=== PATIENT | female | born 1975 | race Caucasian/White ===

== ENCOUNTER 2018-06-23 12:01 | Emergency (ER) | payer OTHER ==
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
[2018-06-23 14:46] VITALS: BP 108/68
== END 2018-06-23 15:27 | disposition home or self-care (01) ==
LOC: ED 12:01
DX: S16.1XXA Strain of muscle, fascia and tendon at neck level, initial encounter (principal); V53.6XXA Passenger in pick-up truck or van injured in collision with car, pick-up truck or van in traffic accident, initial encounter; Y92.411 Interstate highway as the place of occurrence of the external cause
CPT/HCPCS: 72125; 99283

== ENCOUNTER 2019-06-10 16:58 | Emergency (ER) | payer OTHER ==
[2019-06-10] MEDS ORDERED: ASPIRIN CHEW 81 MG TABLET PO STA (17:10)
[2019-06-10] MEDS ORDERED: MAG HYDROX/AL HYDROX/SIMETH 30 ML UDC PO STA (17:11)
[2019-06-10] MEDS ORDERED: LIDOCAINE VISCOUS 2% 15 ML UDC MM STA (17:11)
--- NOTE | 2019-06-10 17:13 | ED Physician Documentation ---
PD HPI CHEST PAIN - Stated complaint Stated Complaint: CP - Chief complaint Chief Complaint: Cardiac - History obtained from History obtained from: Patient (She developed sharp pain under the left breast radiating to the left shoulder with a feeling of a cold left arm at 2:00 while working lightly at work. She denies shortness of breath. She is never had this before. No recent travel. No control use or calf pain. No history of D VT or PE. No personal history of heart disease. She does have some family history of heart disease in second-degree relatives at a young age.) Review of Systems Ten Systems: 10 systems reviewed and negative Constitutional: denies: Fever, Chills Throat: denies: Dental pain / toothache, Sore throat Cardiac: denies: Pedal edema, Calf pain Respiratory: denies: Hemoptysis, Wheezing PD PAST MEDICAL HISTORY - Past Surgical History Past Surgical History: No - Present Medications Home Medications: Ambulatory Orders Medication Instructions Recorded Confirmed Cyclobenzaprine [Flexeril] 10 mg PO TID PRN #20 tablet 06/23/18 Hydrocodone/Acetaminophen 1 - 2 each PO Q6H PRN #14 tablet 06/23/18 [Hydrocodon-Acetaminophen 5-325] - Allergies Allergies/Adverse Reactions: Allergies Allergy/AdvReac Type Severity Reaction Status Date / Time No Known Drug Allergies Allergy Verified 06/10/19 17:03 - Social History Does the pt smoke?: No Smoking Status: Never smoker Does the pt drink ETOH?: No Does the pt have substance abuse?: No - Immunizations Immunizations are current?: Yes - POLST Patient has POLST: No PD ED PE NORMAL - Vitals Vital signs reviewed: Yes - General General: Alert and oriented X 3, No acute distress - HEENT HEENT: PERRL, EOMI - Neck Neck: Supple, no meningeal sign, No bony TTP - Cardiac Cardiac: RRR, No murmur - Respiratory Respiratory: No respiratory distress, Clear bilaterally - Abdomen Abdomen: Soft, Non tender - Back Back: No CVA TTP, No spinal TTP - Derm Derm: Normal color, Warm and dry - Extremities Extremities: No edema, No calf tenderness / cord - Neuro Neuro: Alert and oriented X 3, Normal speech Results - Vitals Vitals: Vital Signs - 24 hr 06/10/19 06/10/19 06/10/19 17:03 17:20 18:06 Temperature 36.6 C 36.6 C Heart Rate 60 66 53 L Respiratory 14 18 17 Rate Blood Pressure 139/83 H 139/83 H 117/84 H O2 Saturation 100 100 99 Oxygen O2 Source Room air - EKG (time done) 1702 Rate: Rate (enter#) (59) Rhythm: NSR (with pacs) [place]: Normal Intervals: Normal SC QRS: Normal Ischemia: Non specific changes (flat T waves throughout). No: ST elevation c/w ischemia, ST depression Computer interpretation: Agree with computer - Labs Labs: Laboratory Tests 06/10/19 06/10/19 06/10/19 17:17 17:17 17:17 WBC 5.9 RBC 3.98 L Hgb 12.0 Hct 35.9 L MCV 90.2 MCH 30.2 MCHC 33.4 RDW 13.8 Plt Count 232 MPV 10.1 Neut # (Auto) 2.8 Lymph # (Auto) 2.4 [place] # (Auto) 0.6 Eos # (Auto) 0.1 Baso # (Auto) 0.0 Absolute Nucleated RBC 0.00 Nucleated RBC % 0.0 D-Dimer < 200.0 L Sodium 139 Potassium 3.6 Chloride 104 Carbon Dioxide 26 Anion Gap 9.0 BUN 13 Creatinine 0.6 Estimated GFR (MDRD) 108 Glucose 97 Calcium 9.0 Total Bilirubin 0.7 AST 35 ALT 43 Alkaline Phosphatase 54 Troponin I High Sens Total Protein 6.9 Albumin 4.2 Globulin 2.7 Albumin/Globulin Ratio 1.6 Lipase 33 06/10/19 17:17 WBC RBC Hgb Hct MCV MCH MCHC RDW Plt Count MPV Neut # (Auto) Lymph # (Auto) [place] # (Auto) Eos # (Auto) Baso # (Auto) Absolute Nucleated RBC Nucleated RBC % D-Dimer Sodium Potassium Chloride Carbon Dioxide Anion Gap BUN Creatinine Estimated GFR (MDRD) Glucose Calcium Total Bilirubin AST ALT Alkaline Phosphatase Troponin I High Sens < 2.3 L Total Protein Albumin Globulin Albumin/Globulin Ratio Lipase - Rads (name of study) 2v chest Radiology: EMP read contemporaneously (normal) PD MEDICAL DECISION MAKING - ED course ED course: Heart score 2 (age/ekg) 43-year-old woman with atypical chest pain, cardiac markers and EKG were negative for acute ischemia. D-dimer negative. Departure - Departure Disposition: Home, Self Care Clinical Impression: Atypical chest pain Condition: Good Record reviewed to determine appropriate education?: Yes Instructions: ED Chest Pain Atypical Unkn Cause Comments: Today we saw you for chest pain, your EKG did not suggest a heart attack and your cardiac markers are negative. We also checked for signs of blood clots which were negative and a chest x-ray which is completely normal. Please return for new or worsening symptoms, follow-up with your doctor, next available appointment. Discharge Date/Time: 06/10/19 18:06
[2019-06-10 17:25] LABS: BASOPHILS % (AUTO) 0.7 %; EOSINOPHILS # (AUTO) 0.1 10^3/uL (0.0-0.7); EOSINOPHILS % (AUTO) 1.7 %; LYMPHOCYTES # (AUTO) 2.4 10^3/uL (1.5-3.5); LYMPHOCYTES % (AUTO) 40.4 %; MEAN CORPUSCULAR HEMOGLOBIN 30.2 pg (27.0-31.0); MEAN CORPUSCULAR HGB CONC 33.4 g/dL (32.0-36.0); MEAN CORPUSCULAR VOLUME 90.2 fL (81.0-99.0); MEAN PLATELET VOLUME 10.1 fL (7.9-10.8); MONOCYTES # (AUTO) 0.6 10^3/uL (0.0-1.0); MONOCYTES % (AUTO) 10.2 %; NEUTROPHILS # (AUTO) 2.8 10^3/uL (1.5-6.6); NEUTROPHILS % (AUTO) 46.7 %; PLT - PLATELET COUNT 232 10^3/uL (130-450); RED BLOOD COUNT 3.98 10^6/uL (4.20-5.40); RED CELL DISTRIBUTION WIDTH 13.8 % (12.0-15.0); WHITE BLOOD COUNT 5.9 x10^3/uL (4.8-10.8)
[2019-06-10 17:43] LABS: ALBUMIN 4.2 g/dL (3.2-5.5); ALBUMIN/GLOBULIN RATIO 1.6 (1.0-2.2); BILIRUBIN,TOTAL 0.7 mg/dL (0.2-1.0); CREATININE 0.6 mg/dL (0.4-1.0); TOTAL PROTEIN 6.9 g/dL (6.7-8.2)
--- NOTE | 2019-06-10 17:52 | XRAY Report ---
Reason: chest pain Procedure Date: 06/10/2019 Accession Number: [id number] / [id number] Procedure: XR - Chest 2 View X-Ray CPT Code: 05897 Final Report FULL RESULT: EXAM: CHEST RADIOGRAPHY EXAM DATE: 06/10/2019 05:42 PM. CLINICAL HISTORY: Chest pain. COMPARISON: None. TECHNIQUE: 2 views. FINDINGS: Lungs/Pleura: No focal opacities evident. No pleural effusion. No pneumothorax. Normal volumes. Mediastinum: Heart and mediastinal contours are unremarkable. Other: None. IMPRESSION: No acute intrathoracic plain film abnormality. RADIA
[2019-06-10 18:07] VITALS: BP 117/84
== END 2019-06-10 18:06 | disposition home or self-care (01) ==
LOC: ED 16:58
DX: R07.89 Other chest pain (principal); I49.1 Atrial premature depolarization; Z82.49 Family history of ischemic heart disease and other diseases of the circulatory system
CPT/HCPCS: 36415; 71046; 80053; 83690; 84484; 85025; 85379; 93005; 99284; A9270

== ENCOUNTER 2020-09-02 09:54 | Outpatient (CLI) | payer OTHER | END 2020-09-02 09:55 | disposition critical access hospital (66) | LOC: EMS 09:54 | PROVIDERS: ATTEND Emergency Medicine | DX: R06.00 Dyspnea, unspecified (principal); R42 Dizziness and giddiness; R20.0 Anesthesia of skin | CPT/HCPCS: A0425; A0429 ==

== ENCOUNTER 2020-09-02 09:59 | Emergency (ER) | payer OTHER ==
--- NOTE | 2020-09-02 10:48 | XRAY Report ---
PROCEDURE: Chest 1 View X-Ray INDICATIONS: chest pain TECHNIQUE: One view of the chest was acquired. COMPARISON: 06/10/2019 FINDINGS: Surgical changes and devices: None. Lungs and pleura: No pleural effusions or pneumothorax. Lungs are clear. Mediastinum: Mediastinal contours appear normal. Heart size is normal. Bones and chest wall: No suspicious bony lesions. Overlying soft tissues appear unremarkable. IMPRESSION: No acute cardiopulmonary disease process. Reviewed by: Beti Carcamo MD, PhD on 09/02/2020 10:47 AM PDT Approved by: Beti Carcamo MD, PhD on 09/02/2020 10:47 AM PDT Station ID: [id number]
[2020-09-02 10:53] LABS: BILIRUBIN,URINE NEGATIVE (NEGATIVE); GLUCOSE, URINE (UA) NEGATIVE (NEGATIVE); KETONES,URINE (UA) TRACE mg/dL (NEGATIVE); LEUKOCYTE ESTERASE, URINE NEGATIVE (NEGATIVE); NITRITE,URINE NEGATIVE (NEGATIVE); OCCULT BLOOD,URINE NEGATIVE (NEGATIVE); PROTEIN,URINE NEGATIVE (NEGATIVE); UROBILINOGEN,URINE 0.2 (NORMAL) E.U./dL (NORMAL)
[2020-09-02 10:55] LABS: CLARITY,URINE CLEAR (CLEAR); HCG UR QUAL NEGATIVE
[2020-09-02 10:56] LABS: BASOPHILS % (AUTO) 0.5 %; EOSINOPHILS # (AUTO) 0.1 10^3/uL (0.0-0.7); EOSINOPHILS % (AUTO) 1.1 %; HCT - HEMATOCRIT 25.9 % (37.0-47.0); HGB - HEMOGLOBIN 8.5 g/dL (12.0-16.0); LYMPHOCYTES # (AUTO) 1.3 10^3/uL (1.5-3.5); LYMPHOCYTES % (AUTO) 22.6 %; MEAN CORPUSCULAR HEMOGLOBIN 30.4 pg (27.0-31.0); MEAN CORPUSCULAR HGB CONC 32.8 g/dL (32.0-36.0); MEAN CORPUSCULAR VOLUME 92.5 fL (81.0-99.0); MEAN PLATELET VOLUME 9.6 fL (7.9-10.8); MONOCYTES # (AUTO) 0.5 10^3/uL (0.0-1.0); NEUTROPHILS # (AUTO) 3.8 10^3/uL (1.5-6.6); NEUTROPHILS % (AUTO) 67.4 %; PLT - PLATELET COUNT 400 10^3/uL (130-450); RED CELL DISTRIBUTION WIDTH 14.3 % (12.0-15.0); WHITE BLOOD COUNT 5.6 x10^3/uL (4.8-10.8)
[2020-09-02 11:09] LABS: ALBUMIN/GLOBULIN RATIO 1.4 (1.0-2.2); BILIRUBIN,TOTAL 0.6 mg/dL (0.2-1.0); CALCIUM 8.9 mg/dL (8.5-10.3); CREATININE 0.6 mg/dL (0.4-1.0); POTASSIUM 3.4 mmol/L (3.5-5.0); TOTAL PROTEIN 6.8 g/dL (6.7-8.2)
--- NOTE | 2020-09-02 12:14 | ED Physician Documentation ---
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 No: Fever, Cough, Hemoptysis, Wheezing, Chest pain / discomfort, Palpitations, Diaphoresis, Bilateral edema, Unilateral edema, Anxiety Similar symptoms before: Diagnosis (anemia) Recently seen: Clinic - Additional information Additional information: 45-year-old female has AN anemia and she has had episodic dyspnea. She reports dyspnea last week she was seen in the clinic had her blood counts checked she had at that time a hematocrit of 24.9 and a hemoglobin of 8.2 Review of Systems Constitutional: denies: Fever Eyes: denies: Decreased vision Ears: denies: Ear pain Nose: denies: Congestion Throat: denies: Sore throat Cardiac: denies: Chest pain / pressure, Palpitations Respiratory: reports: Dyspnea. denies: Cough, Wheezing GI: denies: Abdominal Pain, Nausea, Vomiting : denies: Dysuria, Frequency Skin: denies: Rash Musculoskeletal: denies: Neck pain, Back pain, Extremity pain Neurologic: reports: Generalized weakness. 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 - Present Medications Home Medications: Ambulatory Orders Medication Instructions Recorded Confirmed Cyclobenzaprine [Flexeril] 10 mg PO TID PRN #20 tablet 06/23/18 Hydrocodone/Acetaminophen 1 - 2 each PO Q6H PRN #14 tablet 06/23/18 [Hydrocodon-Acetaminophen 5-325] B 12 0 mg DAILY 09/02/20 Ferrous Sulfate 0 mg DAILY 09/02/20 09/02/20 - Allergies Allergies/Adverse Reactions: Allergies Allergy/AdvReac Type Severity Reaction Status Date / Time No Known Drug Allergies Allergy Verified 09/02/20 11:14 - Social History Does the pt smoke?: No Smoking Status: Never smoker Does the pt drink ETOH?: Yes Does the pt have substance abuse?: No - Immunizations Immunizations are current?: Yes - POLST Patient has POLST: No PD ED PE NORMAL - Vitals Vital signs reviewed: Yes (normal ) - General General: Alert and oriented X 3, No acute distress, Well developed/nourished - HEENT HEENT: Atraumatic, PERRL, EOMI - Neck Neck: Supple, no meningeal sign, No bony TTP - Cardiac Cardiac: RRR, No murmur - Respiratory Respiratory: No respiratory distress, Clear bilaterally - Abdomen Abdomen: Normal bowel sounds, Soft, Non tender, Non distended, No organomegaly - Back Back: No CVA TTP, No spinal TTP - Derm Derm: Normal color, Warm and dry, No rash - Extremities Extremities: No deformity, No edema - Neuro Neuro: Alert and oriented X 3, pin attacher 2-12 intact, No motor deficit, No sensory deficit, Normal speech Eye Opening: Spontaneous Motor: Obeys Commands Verbal: Oriented GCS Score: 15 - Psych Psych: Normal mood, Normal affect Results - Vitals Vitals: Vital Signs - 24 hr 09/02/20 09/02/20 09/02/20 09:59 10:30 11:00 Temperature 36.0 C L Heart Rate 68 59 L 59 L Respiratory 16 16 14 Rate Blood Pressure 116/73 116/71 97/69 O2 Saturation 100 98 99 09/02/20 09/02/20 09/02/20 12:00 12:23 14:09 Temperature 36.8 C Heart Rate 60 68 62 Respiratory 16 16 12 Rate Blood Pressure 105/71 105/71 104/76 O2 Saturation 99 98 99 Oxygen O2 Source Room air - EKG (time done) 1012 Rate: Rate (enter#) (59) Rhythm: NSR Ischemia: Normal ST segments, Non specific changes (borderline inferior) Compare to prior EKG: Unchanged from prior EKG (SPT 06-10-2019 no changes) Computer interpretation: Agree with computer - Labs Labs: Laboratory Tests 09/02/20 09/02/20 09/02/20 10:40 10:45 10:45 WBC 5.6 RBC 2.80 L Hgb 8.5 L Hct 25.9 L MCV 92.5 MCH 30.4 MCHC 32.8 RDW 14.3 Plt Count 400 MPV 9.6 Neut # (Auto) 3.8 Lymph # (Auto) 1.3 L [place] # (Auto) 0.5 Eos # (Auto) 0.1 Baso # (Auto) 0.0 Absolute Nucleated RBC 0.00 Nucleated RBC % 0.0 D-Dimer Sodium 138 Potassium 3.4 L Chloride 106 Carbon Dioxide 22 Anion Gap 10.0 BUN 13 Creatinine 0.6 Estimated GFR (MDRD) 107 Glucose 96 Calcium 8.9 Total Bilirubin 0.6 AST 26 ALT 28 Alkaline Phosphatase 49 Troponin I High Sens Total Protein 6.8 Albumin 4.0 Globulin 2.8 Albumin/Globulin Ratio 1.4 Lipase 31 Urine Color YELLOW Urine Clarity CLEAR Urine pH 8.0 H Ur Specific [place] 1.015 Urine Protein NEGATIVE Urine Glucose (UA) NEGATIVE Urine Ketones TRACE Urine Occult Blood NEGATIVE Urine Nitrite NEGATIVE Urine Bilirubin NEGATIVE Urine Urobilinogen 0.2 (NORMAL) Ur Leukocyte Esterase NEGATIVE Ur Microscopic Review NOT INDICATED Urine Culture Comments NOT INDICATED Urine HCG, Qual NEGATIVE Blood Type Blood Type Recheck Antibody Screen Crossmatch IS Only 09/02/20 09/02/20 09/02/20 10:45 10:45 10:45 WBC RBC Hgb Hct MCV MCH MCHC RDW Plt Count MPV Neut # (Auto) Lymph # (Auto) [place] # (Auto) Eos # (Auto) Baso # (Auto) Absolute Nucleated RBC Nucleated RBC % D-Dimer 304.1 H Sodium Potassium Chloride Carbon Dioxide Anion Gap BUN Creatinine Estimated GFR (MDRD) Glucose Calcium Total Bilirubin AST ALT Alkaline Phosphatase Troponin I High Sens < 2.3 L Total Protein Albumin Globulin Albumin/Globulin Ratio Lipase Urine Color Urine Clarity Urine pH Ur Specific [place] Urine Protein Urine Glucose (UA) Urine Ketones Urine Occult Blood Urine Nitrite Urine Bilirubin Urine Urobilinogen Ur Leukocyte Esterase Ur Microscopic Review Urine Culture Comments Urine HCG, Qual Blood Type Blood Type Recheck O POSITIVE Antibody Screen Crossmatch IS Only 09/02/20 13:25 WBC RBC Hgb Hct MCV MCH MCHC RDW Plt Count MPV Neut # (Auto) Lymph # (Auto) [place] # (Auto) Eos # (Auto) Baso # (Auto) Absolute Nucleated RBC Nucleated RBC % D-Dimer Sodium Potassium Chloride Carbon Dioxide Anion Gap BUN Creatinine Estimated GFR (MDRD) Glucose Calcium Total Bilirubin AST ALT Alkaline Phosphatase Troponin I High Sens Total Protein Albumin Globulin Albumin/Globulin Ratio Lipase Urine Color Urine Clarity Urine pH Ur Specific [place] Urine Protein Urine Glucose (UA) Urine Ketones Urine Occult Blood Urine Nitrite Urine Bilirubin Urine Urobilinogen Ur Leukocyte Esterase Ur Microscopic Review Urine Culture Comments Urine HCG, Qual Blood Type O POSITIVE Blood Type Recheck Antibody Screen NEGATIVE Crossmatch IS Only See Detail - Rads (name of study) chest Radiology: Prelim report reviewed (Impression: No acute cardiopulmonary disease process.), EMP read indepedently, See rad report PD MEDICAL DECISION MAKING - ED course Complexity details: reviewed old records, reviewed results, re-evaluated patient, considered differential, d/w patient ED course: 45-year-old female history of anemia who was recently been in to see her doctor and had her iron increased has had a near syncopal episode today while at work and developed some acute dyspnea the resulted in a panic attack and numbness to her fingertips and lips. She arrives to the emergency department with resolution of the numbness and some mild tachypnea. She reports that she has had increased exertional dyspnea over the past 2 weeks and is having dyspnea at work. She is symptomatic from her anemia and despite a slight improvement in her blood counts from last she is more symptomatic. I considered an iron infusion and we are not able to do that in the ED. She has a referral to the business support assistant to consider the iron infusion and I asked the patient if she would be willing to go home and follow up or have a unit of blood and she would much prefer the blood. She is transfused a single unit of blood for symptomatic anemia. Departure - Departure Clinical Impression: Symptomatic anemia Condition: Stable Instructions: ED Anemia Iron Deficiency Follow-Up: MANOLO BARNES MD [Primary Care Provider] - Comments: Today you were given a 1 unit transfusion of packed red blood cells for symptomatic anemia. Continue your iron as previously and follow-up with your primary care doctor for referral to the business support assistant.
[2020-09-02] MEDS ORDERED: diphenhydrAMINE 25 MG CAPSULE PO STA (15:19)
[2020-09-02] MEDS ORDERED: ACETAMINOPHEN 325 MG TABLET PO STA (15:19)
[2020-09-02 16:20] VITALS: BP 109/71
== END 2020-09-02 16:22 | disposition home or self-care (01) ==
LOC: ED 09:59 → MERGE 09:59 → ED 16:22
DX: D64.9 Anemia, unspecified (principal); R55 Syncope and collapse; R06.82 Tachypnea, not elsewhere classified
CPT/HCPCS: 36415; 71045; 80053; 81003; 81025; 83690; 84484; 85025; 85379; 86850; 86900; 86901; 86920; 93005; 99284; 99285; A9270; P9016; 81001; 87086

== ENCOUNTER 2020-09-23 10:42 | Outpatient (CLI) | payer OTHER ==
[2020-09-23] MEDS ORDERED: IOPAMIDOL-300 100 ML VIAL ONE (10:59)
[2020-09-23] MEDS ORDERED: IOPAMIDOL-300 50 ML VIAL ONE (10:59)
[2020-09-23] MEDS ORDERED: IOPAMIDOL-300 50 ML VIAL PO ONE (12:24)
[2020-09-23] MEDS ORDERED: IOPAMIDOL-300 100 ML VIAL IVP ONE (12:24)
--- NOTE | 2020-09-23 12:59 | CT Report ---
PROCEDURE: ABDOMEN W INDICATIONS: GASTRIC ULCER, EPIGASTRIC PAIN CONTRAST: IV CONTRAST: Isovue 300 ml: 100 PO CONTRAST: Isovue 300 ml50 TECHNIQUE: After the administration of oral and intravenous contrast, 5 mm thick sections acquired from the diap hragms to the iliac crests. 5 mm thick coronal and sagittal reformats were acquired. For radiation dose reduction, the following was used: automated exposure control, adjustment of mA and/or kV accor ding to patient size. COMPARISON: None FINDINGS: Image quality: Excellent. Lung bases: Lung bases are clear. Heart size is normal. Solid organs: Liver and spleen are normal in size and enhancement. Gallbladder is unremarkable. Bi liary system is non dilated. Pancreas enhances normally. No adrenal nodules. Kidneys are normal in size, without hydronephrosis. Peritoneum and bowel: The gastric ulcer location given history is not identified by CT. There is no gastric wall thickening or duodenal wall thickening identified. Contrast enhanced bowel loops appear normal in caliber. No free fluid or air. Nodes and vessels: No retroperitoneal or mesenteric adenopathy by size criteria. Aorta and inferior vena cava are normal in size. Bones: No suspicious bony lesions. No vertebral body compression fractures. Miscellaneous: No ventral hernias. IMPRESSION: 1. No evidence of acute abdominal process. 2. No CT evidence of peptic ulcer disease. 3. No evidence of metastatic disease in the abdomen. Reviewed by: Pacheco Lehman MD on 09/23/2020 12:58 PM PDT Approved by: Pacheco Lehman MD on 09/23/2020 12:58 PM PDT Station ID: [id number]
== END 2020-09-23 10:43 | disposition home or self-care (01) ==
LOC: DI 10:42
PROVIDERS: ATTEND Internal Medicine Gastroenterology
DX: K25.9 Gastric ulcer, unspecified as acute or chronic, without hemorrhage or perforation (principal); R10.13 Epigastric pain
CPT/HCPCS: 74160; Q9967

== ENCOUNTER 2020-11-18 16:18 | Outpatient (CLI) | payer OTHER ==
[2020-11-18 17:11] VITALS: BP 108/78
--- NOTE | 2020-11-18 17:11 | SLEEP CARE CONSULTATION ---
Information from patient questionnaire entered by Jennifer Matson. I have reviewed and concur with the information entered by Jennifer Matson. This document represents the service I personally performed and the decisions made by me, Yola Morris ARNP. History of Present Illness Service Date and Time: 11/18/2020 1618 Reason for Visit: New patient Chief Complaint: reports: Unrefreshed sleep, Snoring (light regular breathing sounds), Excessive daytime sleepiness, Fatigue, Frequent awakenings at night Date of Onset: About 2 years Usual bedtime: 9:00 PM Time it takes to fall asleep: Instant Snores at night: No Observed to quit breathing while asleep: No Sleeps alone due to snoring: No Number of times waking at night: One or two Reasons for waking at night: reports: Bathroom, Other (Unknown reason). denies: Choking, Snoring, Gasping for air Toss, Turn, or Twitch while sleeping: No Recalls having dreams: No Usually gets out of bed at: 5:00 AM Feels refreshed in the morning: No Morning headache: No Sleepy or fatigued during the day: Yes Ever fallen asleep while driving: Yes (just drowsy driving) Takes day naps: No Dreams during day naps: No Prior sleep studies: No Additional HPI information: I had the pleasure of seeing LISSET BENSON today regarding the possibility of her having a sleep disorder. Her current complaints are fatigue, frequent night awakenings, excessive daytime sleepiness and unrefreshed sleep. She is accompanied by her today. She states she recently had anemia for which she was treated with an iron infusion. She had resolution of the anemia but she continues to be fatigued and excessively tired during the day. She wakes up not feeling rested and if she gets quiet at all she can fall asleep. Her states she does snore very lightly but has never noticed any pauses in breathing while she sleeps. She denies any choking or gasping for air that has woken her up. She tries not to take a nap because it makes her feel worse. Her father and a sibling both have sleep apnea and are being treated with a breathing machine. 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 Patient is and lives in [place]. Have you smoked in the past 12 months: No Alcohol use: Yes Alcohol amount and frequency: 1 glass once a month Caffeine use: Yes Caffeine amount and frequency: 1 cup a day Family History Family history of sleep disordered breathing: Yes Family Hx Sleep Apnea: Father: Snoring, Sleep apnea - Treated, Sibling: Snoring, Sleep apnea - Treated Allergies and Home Medications Drug allergies reviewed: Yes (NKDA) Home medication list reviewed: Yes Allergy and home medication list: Carotine as needed for allergies Tizanidine Review of Systems Cardiovascular: denies: high blood pressure Gastrointestinal: reports: other (Ulcer, H-Pylori, IBS). denies: heartburn Neurological: denies: headaches Psychiatric: denies: anxiety, depression Endocrine: denies: thyroid disease Musculoskeletal: reports: neck pain Immunologic: reports: allergies to food or environment Physical Exam Blood Pressure: 108/78 Cuff size: regular Heart Rate: 60 O2 Saturation: 99 Height: 5 ft 9 in Weight: 153 lb Body Mass Index: 22.6 BMI Classification: Healthy weight Neck circumference: 13.25 (inches) Mouth and throat: narrow oropharynx Soft palate: long Hard palate: normal Uvula: normal Uvula visualization: 100% Mallampati Class I Tongue: normal in size Tonsils: small Neck: normal w/o lymphadenopathy or thyromegaly Heart: regular rate and rhythm Lungs: clear bilaterally Impression and Plan 1. Suspected Obstructive Sleep Apnea-Hypopnea Syndrome, as previously diagnosed.suggested by a history of light snoring, frequent awakening during the night, unrefreshed sleep, cognitive impairment, and excessive daytime sleepiness. Narrow oropharynx and obesity are common predisposing factors for obstructive sleep apnea-hypopnea syndrome. I recommend proceeding to polysomnography to confirm the diagnosis and to assess severity. If the patient has significant sleep disordered breathing, a manual CPAP titration study will also be performed to find the optimal treatment pressure. I informed the patient of what the sleep studies involve and after some discussion, obtained agreement to proceed. The pathophysiology of obstructive sleep apnea-hypopnea syndrome was discussed with the patient and health risks of cardiovascular and cerebrovascular disease if not treated. Risks of drowsy driving discussed in detail and patient advised to avoid long distance driving and to rack puller at the first sign of drowsiness. Patient agreed to plan. * Schedule polysomnography +- manual CPAP titration study and return in 1-2 weeks after the study to discuss result and initiate therapy. * Avoid long distance driving or driving when feeling sleepy. * Avoid alcohol, sedative and muscle relaxant around bedtime. * Attempt to lose weight. * Review instructions provided by trained office staff on how to prepare for the sleep study. * Return for follow-up after sleep study completed. Counseling Topics: Weight control Visit Type: In Office Time Spent with Patient (minutes): 31 Provider Statement: I spent 100% of the Face to Face Visit with the patient with greater than 50% spent counseling the patient and coordination of care.
== END 2020-11-18 16:19 | disposition home or self-care (01) ==
LOC: SC 16:18
PROVIDERS: ATTEND Nurse Practitioner Family
DX: G47.33 Obstructive sleep apnea (adult) (pediatric) (principal)
CPT/HCPCS: 99203; 99212

== ENCOUNTER 2020-11-23 14:45 | Outpatient (CLI) | payer OTHER | END 2020-11-23 14:46 | disposition home or self-care (01) | LOC: SC 14:45 | PROVIDERS: ATTEND Nurse Practitioner Family | DX: R06.83 Snoring (principal); G47.8 Other sleep disorders; R53.83 Other fatigue; G47.10 Hypersomnia, unspecified | CPT/HCPCS: 95806 ==

== ENCOUNTER 2020-12-14 11:52 | Outpatient (CLI) | payer OTHER ==
--- NOTE | 2020-12-14 12:11 | SLEEP CARE CONSULTATION ---
Information from patient questionnaire entered by Beti Shepherd. I have reviewed and concur with the information entered by Beti Shepherd. This document represents the service I personally performed and the decisions made by , Yola Morris ARNP. History of Present Illness Service Date and Time: 12/14/2020 1152 Initial [place] Sleepiness Scale score: 24 (in 2020) Current [place] Sleepiness Scale score: 19 Additional HPI information: LISSET BENSON returns via Telehealth visit with spouse for follow up and results of the recently performed home sleep study. The patient was informed of the following findings: Patient has no significant sleep disordered breathing with an AHI of 1.3 and a anna oxygen saturation of 92%. I explained the pathophysiology behind obstructive sleep apnea. Patient does not have sleep apnea and was advised how weight gain could increase the risk of developing sleep apnea in the future. Patient has very light snoring. Patient was cautioned about risks of drowsy driving until sleepiness symptoms resolve. Sleep Study - Results Type of Sleep Study: Home sleep study Prior sleep studies: No Polysomnography/Home Sleep Study results: Physician Impression: The quality of the study is good. The length of the study is adequate (> 240 mi nutes). Please also see the tabulated and graphic data. 1. No significant sleep disordered breathing, with an AHI of 1.3/hr and anna SaO2 of 92%. During the study, the patient had 9 apneas (9 obstructive, 0 central, 0 mixed) and 0 hypopneas. The longest episode lasted 29.5 seconds. The patient only slept supine during this study (supine AHI was 1.4 and non-supine, 0.00). Recommendation: h No treatment is necessary. Allergies and Home Medications Home medication list reviewed: Yes (no changes) Review of Systems Review of systems same as previous: Yes (no changes) Physical Exam Vital signs obtained and entered by: Telehealth visit to reduce exposure during Covid pandemic Height: 5 ft 9 in Impression and Plan Snoring, very light, but no significant sleep disordered breathing. Patient advised to maintain a healthy weight. Patient still has significant fatigue and sleepiness during the day. I offered to have her repeat the study in lab but patient has since moved to [place]. I encouraged her to follow-up with her primary care doctor there to evaluate for other possible reasons for her daytime fatigue and sleepiness. If they should not find any cause she may repeat the sleep study in lab. Patient voiced understanding and agreement with this plan of care. * Follow up with PCP * Patient at a healthy weight * Avoid alcohol consumption near bedtime * The patient is cautioned about driving until sleepiness is completely resolved. * Return as needed. Counseling Topics: Weight control Visit Type: Telehealth Video Video Type: VSee Patient Location: Car Location of Provider: Office Patient agrees and consents to this telehealth visit type: Yes Patient agrees to have their insurance billed: Yes Time Spent with Patient (minutes): 16 Provider Statement: I spent 100% of the Telehealth Video Call with the patient with greater than 50% spent counseling the patient and coordination of care.
== END 2020-12-14 11:53 | disposition home or self-care (01) ==
LOC: SC 11:52
PROVIDERS: ATTEND Nurse Practitioner Family
DX: R06.83 Snoring (principal)